=== PATIENT | female | born 1955 | race Caucasian/White ===

== ENCOUNTER 2017-04-14 13:16 | Inpatient (IN) | payer OTHER ==
[2017-04-14] MEDS: KETOROLAC 30 MG/ML VIAL (J1885) IV (16:23)
[2017-04-14] MEDS: NS 1,000 ML IV (16:23)
[2017-04-14] MEDS: PANTOPRAZOLE 40MG INJ (PROTONIX) (C9113) IV (16:23)
[2017-04-14] MEDS: ONDANSETRON 4MG/2ML VIAL (J2405) IV (16:23)
[2017-04-14] MEDS: GASTROGRAFIN SOLUTION 30ML PO ×2 (16:30→17:05)
[2017-04-14 16:32] LABS: BASO % 0.2 % (0.0-1.0); EOS # 0.1 10^3/uL (0.0-0.50); EOS % 0.8 % (0.0-3.0); HEMATOCRIT 39.7 % (36.0-47.0); HEMOGLOBIN 13.8 g/dl (12.0-16.0); IMMATURE GRANULOCYTE % 0.4 % (0-3.0); LYMPH # 2.9 10^3/uL (1.5-4.5); LYMPH % 22.6 % (24.0-44.0); MEAN CORPUSCULAR HEMOGLOBIN 30.6 pg (27.0-33.0); MEAN CORPUSCULAR HGB CONC 34.8 g/dl (32.0-36.5); MONO % 7.9 % (0.0-5.0); NEUTROPHILS # 8.8 10^3/uL (1.8-7.7); NEUTROPHILS % 68.1 % (36.0-66.0); PLATELET COUNT, AUTOMATED 271 10^3/uL (150-450); RED BLOOD COUNT 4.51 10^6/uL (4.00-5.40); RED CELL DISTRIBUTION WIDTH 13.6 % (11.5-14.5); WHITE BLOOD COUNT 12.9 10^3/uL (4.0-10.0)
[2017-04-14 16:56] LABS: ALBUMIN 3.6 GM/DL (3.2-5.2); ALBUMIN/GLOBULIN RATIO 0.88 (1.00-1.93); ALKALINE PHOSPHATASE 80 U/L (45-117); ALT/SGPT 12 U/L (12-78); ANION GAP 10 MEQ/L (8-16); AST/SGOT 11 U/L (7-37); BILIRUBIN,DIRECT 0.1 MG/DL (0.0-0.2); BILIRUBIN,TOTAL 0.4 MG/DL (0.2-1.0); BLOOD UREA NITROGEN 30 MG/DL (7-18); CALCIUM LEVEL 9.6 MG/DL (8.5-10.1); CARBON DIOXIDE LEVEL 24 MEQ/L (21-32); CHLORIDE LEVEL 102 MEQ/L (98-107); CREATININE FOR GFR 1.45 MG/DL (0.55-1.30); GLOMERULAR FILTRATION RATE 39.3 (>51); GLUCOSE, FASTING 100 MG/DL (70-100); LIPASE 169 U/L (73-393); SODIUM LEVEL 136 MEQ/L (136-145); TOTAL PROTEIN 7.7 GM/DL (6.4-8.2)
[2017-04-14 17:39] LABS: INR 0.96; PROTHROMBIN TIME 12.9 SECONDS (12.4-14.5)
[2017-04-14] MEDS ORDERED: ISOVUE-370 76% 100ML VIAL (Q9967) As Ordered (17:41)
[2017-04-14] MEDS: POTASSIUM CHLORIDE 10 MEQ SR TABLET PO (17:45)
[2017-04-14 18:19] LABS: KETONE, URINE AUTO RFX NEGATIVE (NEGATIVE); MUCUS, URINE RFX SMALL (NEGATIVE); NITRITE, URINE AUTO RFX NEGATIVE (NEGATIVE); RBC, URINE AUTO RFX 2 /HPF (0-3); SQUAM EPITHELIAL CELL UR AURFX 12 /HPF (0-6)
[2017-04-14 18:22] LABS: LEUKOCYTE ESTERASE UR AUTO RFX TRACE (NEGATIVE); WBC, URINE AUTO RFX 12 /HPF (0-3)
[2017-04-14] MEDS: metroNIDAZOLE 500 MG in APPROPRIATE DILUENT 1 EA IV (19:45)
[2017-04-14] MEDS: CIPROFLOXACIN 400 MG in APPROPRIATE DILUENT 1 EA IV (19:45)
[2017-04-14] MEDS: DOCUSATE SODIUM 100 MG CAP PO (21:00)
[2017-04-14] MEDS: D5W/LR 1,000 ML IV (21:07)
[2017-04-14] MEDS ORDERED: NORCO, ANEXSIA 5/325MG TABLET (HYDROcodone/ACETAMINOPHEN) PO (21:15)
[2017-04-14] MEDS ORDERED: PROMETHAZINE INJ 25 MG/ML VIAL (J2550) IV (21:15)
[2017-04-14] MEDS ORDERED: KETOROLAC 30 MG/ML VIAL (J1885) IV (21:15)
[2017-04-14] MEDS ORDERED: ONDANSETRON 4MG/2ML VIAL (J2405) IV (21:15)
[2017-04-14] MEDS ORDERED: MORPHINE 4 MG/ML 1ML VIAL (J2270) IV ×2 (21:15)
[2017-04-14] MEDS ORDERED: METOCLOPRAMIDE INJ 10MG/2ML VIAL (J2765) IV (21:15)
[2017-04-14] MEDS: CEFTRIAXONE SOD 1 GM in APPROPRIATE DILUENT 1 EA IV (22:41)
[2017-04-15] MEDS: D5W/LR 1,000 ML IV (05:23)
[2017-04-15] MEDS: metroNIDAZOLE 500 MG in APPROPRIATE DILUENT 1 EA IV ×2 (05:23→13:10)
[2017-04-15] MEDS: NORCO, ANEXSIA 5/325MG TABLET (HYDROcodone/ACETAMINOPHEN) PO ×3 (05:23→14:37)
[2017-04-15 07:29] LABS: HEMATOCRIT 31.6 % (36.0-47.0); MEAN CORPUSCULAR HEMOGLOBIN 30.8 pg (27.0-33.0); MEAN CORPUSCULAR HGB CONC 34.8 g/dl (32.0-36.5); MEAN CORPUSCULAR VOLUME 88.5 fl (80.0-96.0); PLATELET COUNT, AUTOMATED 207 10^3/uL (150-450); RED BLOOD COUNT 3.57 10^6/uL (4.00-5.40); RED CELL DISTRIBUTION WIDTH 13.5 % (11.5-14.5); WHITE BLOOD COUNT 9.8 10^3/uL (4.0-10.0)
[2017-04-15 07:50] LABS: ANION GAP 8 MEQ/L (8-16); BLOOD UREA NITROGEN 23 MG/DL (7-18); CALCIUM LEVEL 8.3 MG/DL (8.5-10.1); CARBON DIOXIDE LEVEL 24 MEQ/L (21-32); CHLORIDE LEVEL 106 MEQ/L (98-107); CREATININE FOR GFR 0.98 MG/DL (0.55-1.30); GLOMERULAR FILTRATION RATE > 60.0 (>51); GLUCOSE, FASTING 163 MG/DL (70-100); POTASSIUM SERUM 3.2 MEQ/L (3.5-5.1); SODIUM LEVEL 138 MEQ/L (136-145)
[2017-04-15] MEDS: DOCUSATE SODIUM 100 MG CAP PO (09:00)
[2017-04-15] MEDS: CIPROFLOXACIN 400 MG in APPROPRIATE DILUENT 1 EA IV (09:29)
[2017-04-15] MEDS: PANTOPRAZOLE 40MG TAB (PROTONIX) PO (09:29)
== END 2017-04-15 17:00 | disposition home or self-care (01) | DRG 531 ==
LOC: M ED 13:16 → M ED INP 21:07 → M MS5PR 23:15
DX: N70.93 Salpingitis and oophoritis, unspecified (principal); I10 Essential (primary) hypertension; E78.00 Pure hypercholesterolemia, unspecified; Z79.02 Long term (current) use of antithrombotics/antiplatelets; Z79.82 Long term (current) use of aspirin; Z79.899 Other long term (current) drug therapy